=== PATIENT | female | born 1940 | race Caucasian/White ===

== ENCOUNTER 2021-08-27 10:56 | Outpatient (CLI) | payer MEDICARE, OTHER ==
[2021-08-27 11:29] LABS: CALCIUM 9.9 mg/dL (8.5-10.3); CREATININE 1.4 mg/dL (0.4-1.0); POTASSIUM 3.6 mmol/L (3.5-5.0)
== END 2021-08-27 10:57 | disposition home or self-care (01) ==
LOC: LAB 10:56
PROVIDERS: ATTEND Family Medicine
DX: N18.30 Chronic kidney disease, stage 3 unspecified (principal); R10.2 Pelvic and perineal pain; R10.9 Unspecified abdominal pain
CPT/HCPCS: 36415; 80048; 87086